=== PATIENT | female | born 1985 | race Caucasian/White ===

== ENCOUNTER → 2016-09-20 | Outpatient (CLI) | payer OTHER | LOC: FIMAGING 11:54 | PROVIDERS: ATTEND Obstetrics & Gynecology | DX: O46.92 Antepartum hemorrhage, unspecified, second trimester (principal); Z3A.20 20 weeks gestation of pregnancy ==

== ENCOUNTER → 2016-11-20 | Outpatient (CLI) | payer OTHER | LOC: FIMAGING 12:16 | PROVIDERS: ATTEND Obstetrics & Gynecology | DX: Z34.03 Encounter for supervision of normal first pregnancy, third trimester (principal); Z3A.29 29 weeks gestation of pregnancy ==

== ENCOUNTER → 2017-01-22 | Outpatient (CLI) | payer OTHER | LOC: FIMAGING 08:50 | PROVIDERS: ATTEND Obstetrics & Gynecology | DX: O26.843 Uterine size-date discrepancy, third trimester (principal); Z3A.38 38 weeks gestation of pregnancy ==

== ENCOUNTER 2017-01-24 02:25 | Observation (INO) | payer OTHER ==
[2017-01-24] MEDS ORDERED: ACETAMINOPHEN 500 MG TAB PO PRN (03:18)
--- NOTE | 2017-01-24 03:22 | PDGENHP ---
History and Physical - Chief Complaint 31 y.o. female presents at 37 6/7 weeks with decreased FM - History of Present Illness 31 y.o. at 37 6/7 weeks for decreased movement. NST- reactive CAT I Noted elevated BPs and will evaluate for PIH. History Information - Allergies/Home Medication List Allergies/Adverse Reactions: Sulfa (Sulfonamide Antibiotics) Allergy (Verified 08/10/14 12:15) Home Medications: Dha 1 cap PO DAILY 01/24/17 [Last Taken 01/23/17] Herbal Drugs 1 cap PO DAILY 01/24/17 [Last Taken 01/23/17] IRON 1 tab PO DAILY 01/24/17 [Last Taken 01/23/17] 1 tab PO DAILY 01/24/17 [Last Taken 01/23/17] VITAMIN D 1,000 iunits PO DAILY 01/24/17 [Last Taken 01/23/17] I have personally reviewed and updated: family history, medical history, social history, surgical history - Past Medical History Additional medical history: depression, seasonal allergies, obesity, borderline elevated cholesterol - Surgical History Additional surgical history: wisdom teeth removal - Family History Positive for: vascular disease Additional family history: hypertension, high cholesterol and mental illness - Social History Smoking Status: Never smoked Alcohol Use: None Drug Use: None Review of Systems ROS: 10pt was reviewed & negative except for what was stated in HPI & below Constitutional: Reports: no symptoms EENMT: Reports: no symptoms Cardiac: Reports: no symptoms Respiratory: Reports: no symptoms Gastrointestinal: Reports: no symptoms Genitourinary: Reports: no symptoms Muscolosketal: Reports: no symptoms Skin: Reports: no symptoms Neurological: Reports: no symptoms Hematologic/Lymphatic: Reports: no symptoms Immunologic/Allergy: Reports: no symptoms Physical Exam Constitutional: no apparent distress Eyes: PERRL Ears, Nose, Mouth, Throat: moist mucous membranes Cardiovascular: regular rate and rhythym, no murmur, rub, or gallop Respiratory: no respiratory distress Gastrointestinal: soft, non-tender abdomen Genitourinary: no bladder fullness, no bladder tenderness Skin: warm, normal color Musculoskeletal: full muscle strength Neurologic: AAOx3, sensation intact bilaterally Psychiatric: interacting appropriately Assessment & Plan Assessment: 31 y.o. female presents at 37 6/7 weeks for decreased movement. NST- reactive CAT I Noted elevated BPs. Denies current headaches, visual changes or RUQ pain. Denies VB, LOF or UCs. Plan: Prolonged NST PIH evaluation
--- NOTE | 2017-01-24 03:36 | SOAPPROG ---
SOAP Progress Note Assessment/Plan: Assessment: 31 y.o. at 37 6/7 weeks with c/o decreased movement. NST- reactive CAT I Noted mildly elevated BPs. Denies current headaches, visual changes or RUQ pain Plan: Prolonged NST. Check PIH labs. 01/24/17 03:33 Subjective: Reports feeling baby move more now. Denies VB, LOF or UCs. Discussed elevated BPs and patient denies current headaches, visual changes or RUQ pain. Denies having any pain or n/v. - Time Spent With Patient Time Spent With Patient: 20 minutes Physical Exam - Physical Exam General Appearance: alert, no apparent distress EENT: normal ENT inspection Neck: full range of motion Respiratory: lungs clear, normal breath sounds Cardiac/Chest: regular rate, rhythm Abdomen: non-tender, soft Pelvic Exam: deferred Rectal: deferred Back: Normal inspection Skin: normal color, warm/dry Lymphatic: no adenopathy Extremities: normal range of motion, non-tender Neuro/Psych: alert, normal mood/affect, oriented x 3 ICD10 Worksheet Patient Problems: Problems Problem Status Onset Decreased movement Acute - ICD10 Problem Qualifiers (1) Decreased movement Qualifiers: Fetus number: single or unspecified fetus Trimester: T
[2017-01-24 03:56] LABS: % IMMATURE GRANULYOCYTES 0.3 % (0.0-1.1); ABSOLUTE IMMATURE GRANULOCYTES 0.03 10^3/uL (0.00-0.10); ADD DIFF? NO; ADD MORPH? NO; ADD SCAN? NO; ATYPICAL LYMPHOCYTE FLAG 0 (0-99); FRAGMENT RBC FLAG 0 (0-99); HEMATOCRIT 36.4 % (38.0-47.0); HEMOGLOBIN 12.9 g/dL (12.6-16.3); LEFT SHIFT FLG 0 (0-99); LIPEMIA HEMOLYSIS FLAG 90 (0-99); MEAN CELL HEMOGLOBIN 30.9 pg (27.9-34.1); MEAN CELL HEMOGLOBIN CONCENTR. 35.4 g/dL (32.4-36.7); MEAN CELL VOLUME 87.3 fL (81.5-99.8); MEAN PLATELET VOLUME 10.2 fL (8.7-11.7); PLATELET CLUMPS FLAG 0 (0-99); PLATELET COUNT 202 10^3/uL (150-400); RED BLOOD CELL COUNT 4.17 10^6/uL (4.18-5.33)
[2017-01-24 04:11] LABS: ALANINE AMINOTRANSFERASE 26 IU/L (9-52); ASPARTATE AMINOTRANSFERASE 21 IU/L (14-46); BILIRUBIN,TOTAL 0.7 mg/dL (0.1-1.4); BILIRUBIN-CONJUGATED 0.3 mg/dL (0.0-0.5); BILIRUBIN-UNCONJUGATED 0.4 mg/dL (0.0-1.1); CREATININE 0.6 mg/dL (0.6-1.0); GLOMERULAR FILTRATION RATE > 60; LACTATE DEHYDROGENASE 446 IU/L (313-618); URIC ACID 5.6 mg/dL (2.5-6.8)
== END 2017-01-24 04:41 | disposition home or self-care (01) ==
LOC: FLD 02:25
PROVIDERS: ADMIT Midwife; ATTEND Midwife
DX: O36.8130 Decreased fetal movements, third trimester, not applicable or unspecified (principal); Z3A.37 37 weeks gestation of pregnancy
CPT/HCPCS: 59025; G0378

== ENCOUNTER 2017-01-24 19:18 | Inpatient (IN) | payer OTHER ==
[2017-01-24 20:12] LABS: % IMMATURE GRANULYOCYTES 0.4 % (0.0-1.1); ABSOLUTE IMMATURE GRANULOCYTES 0.05 10^3/uL (0.00-0.10); ADD DIFF? NO; ADD MORPH? NO; ADD SCAN? NO; ATYPICAL LYMPHOCYTE FLAG 0 (0-99); FRAGMENT RBC FLAG 0 (0-99); HEMATOCRIT 35.5 % (38.0-47.0); HEMOGLOBIN 12.3 g/dL (12.6-16.3); LEFT SHIFT FLG 0 (0-99); LIPEMIA HEMOLYSIS FLAG 90 (0-99); MEAN CELL HEMOGLOBIN 30.8 pg (27.9-34.1); MEAN CELL HEMOGLOBIN CONCENTR. 34.6 g/dL (32.4-36.7); MEAN CELL VOLUME 88.8 fL (81.5-99.8); MEAN PLATELET VOLUME 11.1 fL (8.7-11.7); PLATELET CLUMPS FLAG 10 (0-99); PLATELET COUNT 238 10^3/uL (150-400); RED CELL DISTRIBUTION WIDTH 13.2 % (11.5-15.2)
[2017-01-24 20:36] LABS: ALANINE AMINOTRANSFERASE 25 IU/L (9-52); ASPARTATE AMINOTRANSFERASE 23 IU/L (14-46); BILIRUBIN,TOTAL 0.7 mg/dL (0.1-1.4); BILIRUBIN-CONJUGATED 0.3 mg/dL (0.0-0.5); BILIRUBIN-UNCONJUGATED 0.4 mg/dL (0.0-1.1); CREATININE 0.6 mg/dL (0.6-1.0); GLOMERULAR FILTRATION RATE > 60; LACTATE DEHYDROGENASE 488 IU/L (313-618); URIC ACID 5.6 mg/dL (2.5-6.8)
[2017-01-24] MEDS ORDERED: ZOLPIDEM TARTRATE 5 MG TAB PO PRN (22:56)
[2017-01-24] MEDS ORDERED: CALCIUM CARBONATE 500 MG CHEWABLE TAB PO PRN (22:56)
[2017-01-24] MEDS ORDERED: ACETAMINOPHEN 325 MG TAB PO PRN (22:56)
[2017-01-24] MEDS ORDERED: LR 500 ML IV PRN (22:57)
[2017-01-24] MEDS ORDERED: OXYTOCIN/RINGERS LACTATE 500 ML IV SCH (23:00)
--- NOTE | 2017-01-24 23:26 | GHP ---
[f rep st] PREOP HISTORY AND PHYSICAL DATE OF ADMISSION: 01/24/2017 Claudette is a 31-year-old 1, para 0 female who is at 38 and 6/7 weeks gestation, who presents with complaints of not feeling well. She is feeling fatigued and achy and anxious. She has known gestational hypertension, and is going to be induced tomorrow morning. PAST MEDICAL HISTORY: Significant for depression and seasonal allergies. PAST SURGICAL HISTORY: Negative. 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 PAST OB HISTORY: This is her first . REVIEW OF SYSTEMS: Positive for fatigue and malaise. Negative for headaches, vision changes, or right upper quadrant pain. PHYSICAL EXAMINATION: VITAL SIGNS: She does have labile pressures, one blood pressure being as high as 130s over high 90s, but she has also had normal blood pressures. GENERAL: She is in no apparent distress. ABDOMEN: Gravid. LABORATORY DATA: Significant for blood type currently unknown. Antibody screen negative. Rubella immune. RPR nonreactive. Hepatitis B surface antigen negative, HIV negative. Gonorrhea and chlamydia negative. 1-hour Glucola 83. GBS negative on 01/03/2017. Claudette did have preeclampsia labs done here. She had a normal hematocrit of 35%. Platelets of 238. Normal liver and kidney functions. ASSESSMENT: I discussed some of the patient's options. The patient is scheduled for induction of labor tomorrow morning. I discussed with the patient that most of her blood pressures were in the normal range or mildly elevated. I offered that the patient could stay overnight with blood pressure monitoring since she was coming back at 6 a.m. for induction of labor or, as she had normal labs and mild blood pressure, she could go home. The patient opted to stay. Will plan on beginning Pitocin in the morning. /[id number]/MODL MTDD
[2017-01-25] MEDS ORDERED: EPSOM SALT 454 GM TP PRN (00:28)
[2017-01-25] MEDS ORDERED: LR 1,000 ML IV PRN (00:28)
[2017-01-25] MEDS ORDERED: TERBUTALINE SULFATE 1 MG/ML VIAL IV PRN (00:28)
[2017-01-25] MEDS ORDERED: OXYTOCIN/RINGERS LACTATE 1,000 ML IV PRN (00:28)
[2017-01-25] MEDS ORDERED: OLIVE OIL 118 ML BTL MISC PRN (00:28)
[2017-01-25 01:22] LABS: % IMMATURE GRANULYOCYTES 0.3 % (0.0-1.1); ABSOLUTE IMMATURE GRANULOCYTES 0.03 10^3/uL (0.00-0.10); ADD DIFF? NO; ADD MORPH? NO; ADD SCAN? NO; ATYPICAL LYMPHOCYTE FLAG 0 (0-99); FRAGMENT RBC FLAG 0 (0-99); HEMATOCRIT 36.4 % (38.0-47.0); HEMOGLOBIN 12.5 g/dL (12.6-16.3); LEFT SHIFT FLG 0 (0-99); LIPEMIA HEMOLYSIS FLAG 90 (0-99); MEAN CELL HEMOGLOBIN 30.6 pg (27.9-34.1); MEAN CELL HEMOGLOBIN CONCENTR. 34.3 g/dL (32.4-36.7); MEAN CELL VOLUME 89.2 fL (81.5-99.8); PLATELET CLUMPS FLAG 0 (0-99); PLATELET COUNT 246 10^3/uL (150-400); RED BLOOD CELL COUNT 4.08 10^6/uL (4.18-5.33); RED CELL DISTRIBUTION WIDTH 13.5 % (11.5-15.2)
[2017-01-25] MEDS ORDERED: LIDOCAINE 1% 300 MG/30 ML SDV ONE ×2 (05:26→17:40)
[2017-01-25] MEDS ORDERED: OXYTOCIN 10 UNIT/ML VIAL ONE ×2 (05:27→17:41)
[2017-01-25] MEDS ORDERED: MISOPROSTOL 200 MCG TAB ONE ×2 (05:27→17:41)
[2017-01-25] MEDS ORDERED: AMMONIA AROMATIC 1 EACH AMP IH ONE ×2 (05:27→17:40)
--- NOTE | 2017-01-25 09:34 | OBPROG ---
OBG Labor Progress Note Assessment/Plan: Assessment: 31 y/o at 39+0 weeks EGA admitted for IOL for GHTN - Plan: 1) Labor IOL - continue w/ pitocin 2) status reassuring 3) Pain - no issues 4) GBS neg 5) GHTN - mild BP's, worsening slightly, will repeat PIH labs 01/25/17 09:34 Subjective: No complaints Objective: 01/24/17 21:30 01/24/17 19:35 Patient ABO/Rh AB POSITIVE 01/24/17 21:30 Uric Acid 5.6 mg/dL (2.5-6.8) 01/24/17 19:35 Total Bilirubin 0.7 mg/dL (0.1-1.4) 01/24/17 19:35 Conjugated Bilirubin 0.3 mg/dL (0.0-0.5) 01/24/17 19:35 Unconjugated Bilirubin 0.4 mg/dL (0.0-1.1) 01/24/17 19:35 AST 23 IU/L (14-46) 01/24/17 19:35 ALT 25 IU/L (9-52) 01/24/17 19:35 Lactate Dehydrogenase 488 IU/L (313-618) 01/24/17 19:35 - SVE Dilation (cm): 4 Effacement (%): 80 Station: -1 [place] Current Contraction Pattern: Regular FHR (bpm): 140 FHR Pattern Variability: Moderate FHR Category: 1 Membranes: AROM Amniotic Fluid Color: Clear - Procedures Non-surgical Procedures: Amniotomy (clear fluid noted) Oxytocin Orders Assessment - Pre-Induction/Augmentation Assessment Gestational Age: 39 week(s) and 0 day(s) ICD10 Worksheet Patient Problems: Problems Problem Status Onset Decreased movement Acute Gestational hypertension Acute
--- NOTE | 2017-01-25 09:34 | OBPROG ---
OBG Labor Progress Note Assessment/Plan: Assessment: 31 y/o at 39+0 weeks EGA admitted for IOL for GHTN - Plan: 1) Labor IOL - continue w/ pitocin 2) status reassuring 3) Pain - no issues 4) GBS neg 5) GHTN - mild BP's, PIH labs last night normal 01/25/17 09:33 Subjective: Pt comfortable, no complaints Objective: 01/24/17 21:30 01/24/17 19:35 Patient ABO/Rh AB POSITIVE 01/24/17 21:30 Uric Acid 5.6 mg/dL (2.5-6.8) 01/24/17 19:35 Total Bilirubin 0.7 mg/dL (0.1-1.4) 01/24/17 19:35 Conjugated Bilirubin 0.3 mg/dL (0.0-0.5) 01/24/17 19:35 Unconjugated Bilirubin 0.4 mg/dL (0.0-1.1) 01/24/17 19:35 AST 23 IU/L (14-46) 01/24/17 19:35 ALT 25 IU/L (9-52) 01/24/17 19:35 Lactate Dehydrogenase 488 IU/L (313-618) 01/24/17 19:35 - SVE Dilation (cm): 4 Effacement (%): 50 Station: -2 [place] Current Contraction Pattern: Irregular FHR (bpm): 140 FHR Pattern Variability: Moderate FHR Category: 1 Membranes: AROM Amniotic Fluid Color: Clear - Procedures Non-surgical Procedures: Amniotomy (clear fluid noted) Oxytocin Orders Assessment - Pre-Induction/Augmentation Assessment Gestational Age: 39 week(s) and 0 day(s) ICD10 Worksheet Patient Problems: Problems Problem Status Onset Decreased movement Acute Gestational hypertension Acute
[2017-01-25 10:30] LABS: ALANINE AMINOTRANSFERASE 28 IU/L (9-52); ASPARTATE AMINOTRANSFERASE 20 IU/L (14-46); BILIRUBIN,TOTAL 0.7 mg/dL (0.1-1.4); BILIRUBIN-CONJUGATED 0.2 mg/dL (0.0-0.5); BILIRUBIN-UNCONJUGATED 0.5 mg/dL (0.0-1.1); CREATININE 0.6 mg/dL (0.6-1.0); GLOMERULAR FILTRATION RATE > 60; LACTATE DEHYDROGENASE 436 IU/L (313-618); URIC ACID 5.3 mg/dL (2.5-6.8)
--- NOTE | 2017-01-25 13:29 | OBPROG ---
OBG Labor Progress Note Assessment/Plan: Assessment: 31 y/o at 39+0 weeks EGA admitted for IOL for GHTN - Plan: 1) Labor IOL - progressing, now entering active labor 2) status reassuring 3) Pain - no issues 4) GBS neg 5) GHTN - mild BP's, repeat PIH labs normal 01/25/17 13:28 Subjective: No complaints, feeling more pain w/ contractions Objective: 01/24/17 21:30 01/25/17 09:55 Patient ABO/Rh AB POSITIVE 01/24/17 21:30 Uric Acid 5.3 mg/dL (2.5-6.8) 01/25/17 09:55 Total Bilirubin 0.7 mg/dL (0.1-1.4) 01/25/17 09:55 Conjugated Bilirubin 0.2 mg/dL (0.0-0.5) 01/25/17 09:55 Unconjugated Bilirubin 0.5 mg/dL (0.0-1.1) 01/25/17 09:55 AST 20 IU/L (14-46) 01/25/17 09:55 ALT 28 IU/L (9-52) 01/25/17 09:55 Lactate Dehydrogenase 436 IU/L (313-618) 01/25/17 09:55 - SVE Dilation (cm): 5 Effacement (%): 90 Station: -1 [place] FHR (bpm): 140 FHR Pattern Variability: Moderate FHR Category: 1 Membranes: AROM Amniotic Fluid Color: Clear - Procedures Non-surgical Procedures: Amniotomy (clear fluid noted) Oxytocin Orders Assessment - Pre-Induction/Augmentation Assessment Gestational Age: 39 week(s) and 0 day(s) ICD10 Worksheet Patient Problems: Problems Problem Status Onset Decreased movement Acute Gestational hypertension Acute
[2017-01-25] MEDS ORDERED: BUPIVACAINE 0.25% 30 ML SDV ONE (14:42)
[2017-01-25] MEDS ORDERED: PHENYLEPHRINE HCL 100 MCG/ML SYR ONE (14:43)
[2017-01-25] MEDS ORDERED: fentanYL 4MCG/ML/BUP 0.0625% RTU 250 ML BAG EP ONE (15:10)
[2017-01-25] MEDS ORDERED: LR 500 ML IV SCH (16:00)
--- NOTE | 2017-01-25 16:02 | PREANESOB ---
Obstetric Pre-Anesthesia Info - General Info Proposed Procedure: josué NPO Start Time: 12:00 : 1 Para: 0 - Info Status: Full Term Monitors: External FHR Pattern: Reassuring - Labor Status Cervical Dilation per last OB SVE: 5, 10 Station per last OB SVE: -1 Rupture of Membranes Time: 07:30 (arom) Amniotic Fluid Color: Clear Magnesium Sulfate in Use: No Indications for Labor Analgesia: Pain Control Labor Epidural: Yes (complete at time of JOSUÉ) Anesthesia Allergies/Adverse Reactions: Allergy/AdvReac Type Severity Reaction Status Date / Time Sulfa (Sulfonamide Allergy Verified 08/10/14 12:15 Antibiotics) Home Medications: Medication Instructions Recorded Dha 1 cap PO DAILY 01/24/17 Herbal Drugs 1 cap PO DAILY 01/24/17 IRON 1 tab PO DAILY 01/24/17 1 tab PO DAILY 01/24/17 VITAMIN D 1,000 iunits PO DAILY 01/24/17 Visit Medications: Generic Name Dose Route Start Last Admin Trade Name Freq PRN Reason Stop Dose Admin Acetaminophen 650 mg 01/24/17 22:56 Tylenol PO 07/23/17 22:55 Q4HRS PRN Pain, Mild/Fever, Can Take PO Calcium Carbonate 500 mg 01/24/17 22:56 Tums PO 07/23/17 22:55 TID PRN Indigestion Lactated Ringer's 500 mls @ 500 mls/hr 01/24/17 22:57 Lr IV PRN PRN Maternal Hypotension Oxytocin/Lactated Ringer's 500 mls @ 0 mls/hr 01/24/17 23:00 01/25/17 06:37 Pitocin 30 Units/Lr (Premix) IV 07/23/17 22:59 500 mls CONT RUDDY Administration Protocol Per Protocol Lactated Ringer's 1,000 mls @ 0 mls/hr 01/25/17 00:28 Lr IV 07/24/17 00:27 PRN PRN SEE PROTOCOL CONDITIONS Protocol Per Protocol Oxytocin/Lactated Ringer's 1,000 mls @ 150 mls/hr 01/25/17 00:28 Pitocin 20 Units/Lr (Premix) IV PRN PRN Post- bleeding Lactated Ringer's 500 mls @ 0 mls/hr 01/25/17 16:00 Lr IV 07/24/17 15:59 CONT RUDDY As Directed Ibuprofen 600 mg 01/25/17 00:28 Motrin PO 07/24/17 00:27 Q6HRS PRN post , inflammation Magnesium Sulfate 454 gm 01/25/17 00:28 Epsom Salt TP 07/24/17 00:27 Q1H PRN perineal discomfort [place] Oil 118 ml 01/25/17 00:28 Sweet Oil MISC 07/24/17 00:27 ONCE PRN preneal massage Terbutaline Sulfate 0.25 mg 01/25/17 00:28 Brethine IV 07/24/17 00:27 ONCE PRN Tachysystole Zolpidem Tartrate 5 mg 01/24/17 22:56 01/24/17 23:39 Ambien PO 07/23/17 22:55 5 mg HS PRN Administration Sleep/Insomnia Discontinued Medications Generic Name Dose Route Start Last Admin Trade Name Freq PRN Reason Stop Dose Admin Ammonia (Aromatic Spirit) Confirm 01/25/17 05:27 Ammonia Aromatic Administered 01/25/17 05:28 Dose 1 each IH .STK-MED ONE Bupivacaine HCl Confirm 01/25/17 14:42 Sensorcaine 0.25% Sdv Administered 01/25/17 14:43 Dose 30 ml .ROUTE .STK-MED ONE Fentanyl/Bupivacaine HCl Confirm 01/25/17 15:10 Fentanyl/Bupivacaine/Ns 4 Mcg/Ml 0.0625%(Rtu) Administered 01/25/17 15:11 Dose 250 ml EP .STK-MED ONE Lidocaine HCl Confirm 01/25/17 05:26 Lidocaine Hcl 1% Administered 01/25/17 05:27 Dose 300 mg .ROUTE .STK-MED ONE Misoprostol Confirm 01/25/17 05:27 Cytotec Administered 01/25/17 05:28 Dose 800 mcg .ROUTE .STK-MED ONE Oxytocin Confirm 01/25/17 05:27 Pitocin Administered 01/25/17 05:28 Dose 40 unit .ROUTE .STK-MED ONE Phenylephrine HCl Confirm 01/25/17 14:43 Neosynephrine Administered 01/25/17 14:44 Dose 1,000 mcg .ROUTE .STK-MED ONE Sufentanil Citrate Confirm 01/25/17 14:41 Sufenta Administered 01/25/17 14:42 Dose 50 mcg .ROUTE .STK-MED ONE - Focused Exam Height/Weight (Nursing): Height 160.02 cm Weight 74.843 kg Labs: 01/24/17 21:30 01/25/17 09:55 Patient ABO/Rh AB POSITIVE 01/24/17 21:30 Uric Acid 5.3 mg/dL (2.5-6.8) 01/25/17 09:55 Total Bilirubin 0.7 mg/dL (0.1-1.4) 01/25/17 09:55 Conjugated Bilirubin 0.2 mg/dL (0.0-0.5) 01/25/17 09:55 Unconjugated Bilirubin 0.5 mg/dL (0.0-1.1) 01/25/17 09:55 AST 20 IU/L (14-46) 01/25/17 09:55 ALT 28 IU/L (9-52) 01/25/17 09:55 Lactate Dehydrogenase 436 IU/L (313-618) 01/25/17 09:55
[2017-01-25] MEDS ORDERED: OLIVE OIL 118 ML BTL ONE (17:40)
[2017-01-25] MEDS ORDERED: TERBUTALINE SULFATE 1 MG/ML VIAL ONE (17:40)
[2017-01-25] MEDS ORDERED: SIMETHICONE 80 MG TAB CHEW PO PRN (19:11)
[2017-01-25] MEDS ORDERED: HYDROCORTISONE 0.5% CREAM TP PRN (19:11)
--- NOTE | 2017-01-25 19:11 | OBDEL ---
Info Type: Vaginal GBS+: No Indications for Delivery: Gestational Hypertension Vaginal Delivery - Labor and Delivery Onset of Contractions Date: 01/25/17 Onset of Contractions Time: 14:00 Onset of Contractions Type: Induced Rupture of Membranes Date: 01/25/17 Rupture of Membranes Time: 07:30 (arom) Rupture of Membranes Type: Artificial Amniotic Fluid Color: Clear Dilation Complete Date: 01/25/17 Dilation Complete Time: 15:00 Placenta Delivery Date: 01/25/17 Placenta Delivery Time: 18:30 Total Hours of Labor: 4 Non-surgical Procedures: Amniotomy (clear fluid noted) Laceration: 2nd Degree Repair: 2-0, Vicryl Vaginal Sponge Count Correct: Yes Vaginal Needle Count Correct: Yes Vaginal Sweep Performed: Yes EBL: 350 cc Delivery Events: None Delivery Comment: Delivered in MILAN position, APGARs 8/9. No complications. Delayed cord clamping x 2 minutes. 2nd degree midline tear noted with some friable tissue noted during repair - all hemostatic after routine repair w/ crown stitch. Uterine atony noted initially that improved w/ IV pitocin w/ 30 units/500cc. Mother and baby in stable and good condition. - Medications Labor Augmentation/Induction Methods Used: Pitocin Labor Augmentation/Induction Indication: Medical (GHTN.) Data [place] Delivery Date: 01/25/17 Delivery Time: 18:23 TONJA: 02/01/17 Gestational Age: 39 week(s) and 0 day(s) Sex of : Male Score (1 Min): 8 Score (5 Min): 9 ICD10 Worksheet Patient Problems: Problems Problem Status Onset (spontaneous vaginal delivery) Acute Decreased movement Acute Gestational hypertension Acute - ICD10 Problem Qualifiers (1) (spontaneous vaginal delivery)
[2017-01-25] MEDS ORDERED: OXYTOCIN/RINGERS LACTATE 1,000 ML IV SCH (19:30)
[2017-01-26] MEDS: IBUPROFEN 600 MG TAB PO PRN ×4 (02:13→20:36)
[2017-01-26 03:34] LABS: % IMMATURE GRANULYOCYTES 0.3 % (0.0-1.1); ABSOLUTE IMMATURE GRANULOCYTES 0.04 10^3/uL (0.00-0.10); ADD DIFF? NO; ADD MORPH? NO; ADD SCAN? NO; ATYPICAL LYMPHOCYTE FLAG 0 (0-99); FRAGMENT RBC FLAG 0 (0-99); HEMOGLOBIN 9.6 g/dL (12.6-16.3); LEFT SHIFT FLG 0 (0-99); LIPEMIA HEMOLYSIS FLAG 90 (0-99); MEAN CELL HEMOGLOBIN 30.4 pg (27.9-34.1); MEAN CELL HEMOGLOBIN CONCENTR. 34.3 g/dL (32.4-36.7); MEAN CELL VOLUME 88.6 fL (81.5-99.8); MEAN PLATELET VOLUME 10.5 fL (8.7-11.7); PLATELET CLUMPS FLAG 0 (0-99); PLATELET COUNT 201 10^3/uL (150-400); RED BLOOD CELL COUNT 3.16 10^6/uL (4.18-5.33); RED CELL DISTRIBUTION WIDTH 13.3 % (11.5-15.2)
[2017-01-26 03:53] LABS: ALANINE AMINOTRANSFERASE 24 IU/L (9-52); ALBUMIN 2.5 g/dL (3.5-5.0); ALKALINE PHOSPHATASE 123 IU/L (38-126); ANION GAP 7 mEq/L (8-16); ASPARTATE AMINOTRANSFERASE 33 IU/L (14-46); BILIRUBIN,TOTAL 0.6 mg/dL (0.1-1.4); CALCIUM 8.7 mg/dL (8.5-10.4); CARBON DIOXIDE 20 mEq/l (22-31); CHLORIDE 110 mEq/L (97-110); CREATININE 0.6 mg/dL (0.6-1.0); GLOMERULAR FILTRATION RATE > 60; GLUCOSE 103 mg/dL (70-100); POTASSIUM 3.8 mEq/L (3.5-5.2); SODIUM 137 mEq/L (134-144); TOTAL PROTEIN 4.8 g/dL (6.3-8.2)
[2017-01-26] MEDS: DOCUSATE SODIUM 100 MG CAP PO PRN ×2 (08:23→20:36)
--- NOTE | 2017-01-26 11:17 | OBPP ---
Progress Note Assessment/Plan: Assessment: PPD#1 s/p at 38w6d after IOL for GHTN BPs normalized No e/o preeclampsia Small drop in H/H, appropriate given few gushes of blood after delivery and dilutional Recovering well Rh pos, Rub imm Plan: Routine pp care Expect home tomorrow Monitor BPs No further labs indicated at this time 01/26/17 11:15 Subjective: Feeling well. Glad to be delivered. Baby is latching. Minimal soreness and bleeding. Objective: 01/26/17 03:25 01/26/17 03:25 Patient ABO/Rh AB POSITIVE 01/24/17 21:30 Uric Acid 5.3 mg/dL (2.5-6.8) 01/25/17 09:55 Total Bilirubin 0.6 mg/dL (0.1-1.4) 01/26/17 03:25 Conjugated Bilirubin 0.2 mg/dL (0.0-0.5) 01/25/17 09:55 Unconjugated Bilirubin 0.5 mg/dL (0.0-1.1) 01/25/17 09:55 AST 33 IU/L (14-46) 01/26/17 03:25 ALT 24 IU/L (9-52) 01/26/17 03:25 Lactate Dehydrogenase 436 IU/L (313-618) 01/25/17 09:55 Temp Pulse Resp BP Pulse Ox 36.9 C 73 16 111/78 97 01/26/17 08:15 01/26/17 08:15 01/26/17 08:15 01/26/17 08:15 01/26/17 08:15 Gen: NAD Resp: unlabored CV: RRR Abd: soft, nontender, uterus firm below U Ext: no edema
[2017-01-26] MEDS: HYDROCODONE/APAP 5/325 TAB PO PRN (14:36)
[2017-01-27] MEDS: HYDROCODONE/APAP 5/325 TAB PO PRN (00:03)
[2017-01-27] MEDS: IBUPROFEN 600 MG TAB PO PRN ×2 (02:47→09:46)
[2017-01-27 08:32] VITALS: BP 126/85; PULSE 70; RESP 17; TEMP 98.1; O2SAT 98
--- NOTE | 2017-01-27 09:37 | OBGCSDC ---
General Delivery Information - General Info : 1 Para: 1 Delivery Physician/CNM: Nilam Waldron Admission Date: 01/25/17 Labs: Patient ABO/Rh AB POSITIVE 01/24/17 21:30 Hct 28.0 % (38.0-47.0) L D 01/26/17 03:25 Vaginal - Diagnosis Labor: Induced Rupture of Membranes Type: Artificial Amniotic Fluid Color: Clear Laceration: 2nd Degree Repair: 2-0, Vicryl Delivery Events: None - Operations/Procedures Non-surgical Procedures: Amniotomy (clear fluid noted) L&D Analgesia/Anesthesia Type: Epidural - Hospital Course Antepartum: Mild GHTN at 39 weeks Rh pos, Rub imm, GBS neg Intrapartum: IOL for GHTN. Uncomplicated . : BPs in normal to mild range. Routine pp course. Home PPD#2 - Delivery Non-surgical Procedures: Amniotomy (clear fluid noted) L&D Analgesia/Anesthesia Type: Epidural Data [place] Delivery Date: 01/25/17 Delivery Time: 18:23 TONJA: 02/01/17 Gestational Age: 39 week(s) and 2 day(s) Sex of : Male [place] Weight (gm): 3140 g Score (1 Min): 8 Score (5 Min): 9 Discharge Information - Discharge Information Discharge Medications: Ibuprofen Condition: Good Instruction/Follow Up: Two Weeks
[2017-01-27] MEDS: DOCUSATE SODIUM 100 MG CAP PO PRN (09:46)
== END 2017-01-27 13:00 | disposition home or self-care (01) | DRG 775 ==
LOC: OBSVTOIN 19:18 → FLD 19:18 → FOB 01-25 22:32
PROVIDERS: ADMIT Obstetrics & Gynecology; ATTEND Obstetrics & Gynecology
DX: O13.3 Gestational [pregnancy-induced] hypertension without significant proteinuria, third trimester (principal); O70.1 Second degree perineal laceration during delivery; Z3A.38 38 weeks gestation of pregnancy; Z37.0 Single live birth
CPT/HCPCS: J2370; J2590; J3105

== ENCOUNTER → 2017-02-06 | Outpatient (CLI) | payer OTHER | LOC: FLACT 14:54 | PROVIDERS: ATTEND Obstetrics & Gynecology | DX: O92.79 Other disorders of lactation (principal) | CPT/HCPCS: G0463 ==

== ENCOUNTER → 2017-05-16 | Outpatient (CLI) | payer OTHER | LOC: FLAB 10:10 → FLACT 10:10 → EDSTATUS 10:12 | PROVIDERS: ATTEND Obstetrics & Gynecology | DX: Z39.1 Encounter for care and examination of lactating mother (principal) | CPT/HCPCS: G0463 ==